=== PATIENT | female | born 1975 ===

== ENCOUNTER 2016-12-07 12:29 | Emergency (ER) | payer OTHER ==
[2016-12-07 12:35] VITALS: RESP 20; TEMP 98
--- NOTE | 2016-12-07 13:37 | RAD ---
PROCEDURE: Right Knee Radiographs. HISTORY: trauma COMPARISON: None. FINDINGS: BONES: Normal. No fracture. JOINTS: Small osteophyte superior inferior pole of patella consistent with early osteoarthritis. No articular erosion. Medial and lateral compartments are preserved. JOINT EFFUSION: None. OTHER FINDINGS: None. IMPRESSION: Early patellofemoral osteoarthritis. No fracture.
--- NOTE | 2016-12-07 13:46 | ED PDOC ---
Lower Extremity Pain/Injury Time Seen by Provider: 12/07/16 12:32 Chief Complaint (Nursing): Lower Extremity Problem/Injury Chief Complaint (Provider): Right Knee Pain History Per: Patient History/Exam Limitations: no limitations Onset/Duration Of Symptoms: Days (today) Current Symptoms Are (Timing): Still Present Severity: Moderate Additional Complaint(s): Ellyn Mullins is a 41 year old female, with no pertinent past medical history, who presents to the ED on 12/07/16 for the evaluation of a moderate amount of sudden onset, posterior right knee pain since having injured it during while exercising at home, where she had planted her right foot and subsequently twisted the rest of her body towards the right. Denies numbness/tingling or blunt trauma. Capable of painful but unassisted ambulation. PMD: none Past Medical History Reviewed: Historical Data, Nursing Documentation, Vital Signs Vital Signs: Last Vital Signs Temp 98 F 12/07/16 12:32 Pulse 106 H 12/07/16 12:32 Resp 20 12/07/16 12:32 BP 127/59 L 12/07/16 12:32 Pulse Ox 98 12/07/16 12:32 - Medical History PMH: No Chronic Diseases - Surgical History Surgical History: (x2) - Family History Family History: States: Unknown Family Hx - Social History Current smoker - smoking cessation education provided: No Alcohol: Social Drugs: Denies - Home Medications Home Medications: Ambulatory Orders Medication Instructions Recorded Naproxen [Naprosyn] 500 mg PO BID PRN #30 tab 12/07/16 - Allergies Allergies/Adverse Reactions: Allergies Allergy/AdvReac Type Severity Reaction Status Date / Time No Known Allergies Allergy Verified 12/07/16 12:35 Review of Systems Musculoskeletal: Positive for: Leg Pain (posterior right knee) Neurological: Negative for: Numbness (no tingling) Physical Exam - Reviewed Nursing Documentation Reviewed: Yes Vital Signs Reviewed: Yes - Physical Exam Appears: Positive for: Non-toxic, No Acute Distress Pulses-Dorsalis Pedis (R): 2+ Extremity: Positive for: Normal ROM (FROM of right knee, no laxity). Negative for: Tenderness (right knee is nontender), Deformity, Swelling Neurologic/Psych: Positive for: Alert, Oriented. Negative for: Motor/Sensory Deficits - ECG O2 Sat by Pulse Oximetry: 98 (RA) Pulse Ox Interpretation: Normal - Other Rad XR Right Knee X-Ray: Interpreted by Me, Viewed By Me X-Ray Interpretation: no fracture/dislocation Medical Decision Making Medical Decision Makin:32 Initial Impression: knee pain/injury; will r/o fracture/dislocation Initial Plan: * XR Right Knee (3 Views) 13:24 XR Right Knee shows no evidence of fracture/dislocation; as read by QUENTIN. Knee immobilizer will be placed on affected knee for patient comfort, see procedure note for additional details. Crutches also given for aided ambulation. Patient is medically stable and requires no further treatment in the ED at this time, will discharge home with Rx for Naprosyn. Counseling was provided and all questions answered regarding diagnosis and need for followup with the referred orthopedist should symptoms not improve with time. There is agreement to discharge plan, return for acute worsening of symptoms. Clinical Impression: knee injury Scribe Attestation: Documented by Gwen Brown, acting as a scribe for Sean Kahn PA-C. Provider Scribe Attestation: All medical record entries made by the Scribe were at my direction and personally dictated by me. I have reviewed the chart and agree that the record accurately reflects my personal performance of the history, physical exam, medical decision making, and the department course for this patient. I have also personally directed, reviewed, and agree with the discharge instructions and disposition. Procedures - Time-Out Type of Procedure: Knee Immobilizer Site of Procedure: Right Knee Correct Patient (with visual ID + MR# on ID Band): Yes Correct Procedure: Yes Correct Site Marked: Yes - Splinting Location: Right Knee Pre-Made Type: knee immobilizer Pre-Proc Neuro Vasc Exam: normal Post-Proc Neuro Vasc Exam: normal Progress: Good placement, neurovascular status remains intact, patient tolerated procedure well with no immediate complications. Disposition - Clinical Impression Clinical Impression: Knee injury Counseled Patient/Family Regarding: Studies Performed, Diagnosis, Need For Followup, Rx Given - Disposition Referrals: [facility] [Outside] Oneida Williamson MD [Staff Provider] - Disposition: Routine/Home Disposition Time: 13:25 Condition: STABLE Additional Instructions: Follow up with Dr. Williamson, orthopedist, in 2 days for further evaluation. RICE Prescriptions: Naproxen [Naprosyn] 500 mg PO BID PRN #30 tab PRN Reason: Pain Instructions: Knee Sprain (ED), Crutch Instructions (ED) Forms: [facility] ED School/Work Excuse
[2016-12-07 14:06] VITALS: BP 115/61; PULSE 79; O2SAT 100
== END 2016-12-07 14:04 | disposition home or self-care (01) ==
LOC: H.ER 12:29
DX: S89.91XA Unspecified injury of right lower leg, initial encounter (principal); X50.1XXA Overexertion from prolonged static or awkward postures, initial encounter; Y92.89 Other specified places as the place of occurrence of the external cause